=== PATIENT | female | born 1955 | race African-American/Black ===

== ENCOUNTER → 2023-12-28 14:13 | Outpatient (REF) | payer MEDICARE, SELFPAY | LOC: WDC 14:13 | PROVIDERS: ATTENDING PHYSICIAN Family Medicine | DX: Z12.31 Encounter for screening mammogram for malignant neoplasm of breast (principal) | CPT/HCPCS: 77063; 77067 ==

== ENCOUNTER → 2024-01-13 09:09 | Outpatient (REF) | payer MEDICARE, SELFPAY | LOC: RSP 09:09 | PROVIDERS: ATTENDING PHYSICIAN Internal Medicine Critical Care Medicine; FAMILY PHYSICIAN Orthopaedic Surgery Orthopaedic Trauma | DX: J82.83 Eosinophilic asthma (principal); J45.20 Mild intermittent asthma, uncomplicated | CPT/HCPCS: 94727; 94729; 88738; 94060 ==

== ENCOUNTER → 2024-12-28 14:27 | Outpatient (REF) | payer OTHER, SELFPAY | LOC: WDC 14:27 | PROVIDERS: ATTENDING PHYSICIAN Physician Assistant Medical | DX: Z12.31 Encounter for screening mammogram for malignant neoplasm of breast (principal) | CPT/HCPCS: 77063; 77067 ==

== ENCOUNTER → 2025-07-26 09:52 | Outpatient (REF) | payer OTHER, SELFPAY | LOC: WDC 09:52 | PROVIDERS: ATTENDING PHYSICIAN Obstetrics & Gynecology; FAMILY PHYSICIAN Family Medicine | DX: R92.2 Inconclusive mammogram (principal) | CPT/HCPCS: 76641 ==